=== PATIENT | male | born 1970 | race Caucasian/White ===

== ENCOUNTER 2016-06-16 18:40 | Emergency (ER) | payer BC, OTHER ==
[~2016-06-16] VITALS: Ht 165.1 cm; Wt 80.0 kg
[2016-06-16 18:46] VITALS: Ht 165.1 cm; Wt 80.0 kg
--- NOTE | 2016-06-16 20:13 | ERD ---
ER Documentation Chief Complaint Date/Time DATE: 06/16/16 TIME: 20:11 Chief Complaint left finger wound scraped from air conditioner HPI 46-year-old male presents to emergency department for complaints of left fourth finger abrasion, superficial laceration after accidentally injuring it against a a metal object at work today. Patient described pain as throbbing pain, 6/10 scale, 6/10 scale, is worse upon touching the area. Patient did not take any medication to put symptoms. Patient does not have any numbness or tingling. Patient denies any deformity. Patient denies any foreign body. ROS All systems reviewed and are negative except as per history of present illness. Medications Home Meds Active Scripts Cephalexin* (Keflex*) 500 Mg Capsule, 500 MG PO QID for 5 Days, CAP Prov:EDUARDO BUNN [employer] SEC[employer]ITY CONSULTANT 06/16/16 Ibuprofen* (Motrin*) 600 Mg Tab, 600 MG PO Q6H Y for PAIN AND OR ELEVATED TEMP, #30 TAB Prov:EDUARDO BUNN IT SEC[employer] CONSULTANT 06/16/16 Reported Medications [none] Unknown Strength No Conflict Check 06/16/16 Allergies Allergies: Coded Allergies: No Known Allergy (Unverified , 06/16/16) PMhx/Soc Unknown last tetanus immunization Medical and Surgical Hx: pt denies Medical Hx, pt denies Surgical Hx History of Surgery: No Anesthesia Reaction: No Hx Neurological Disorder: No Hx Respiratory Disorders: No Hx Cardiac Disorders: No Hx Psychiatric Problems: No Hx Miscellaneous Medical Probl: No Hx Alcohol Use: Yes (SOCIALLY) Hx Substance Use: No Hx Tobacco Use: No Smoking Status: Never smoker FmHx Family History: No coronary disease, No diabetes, No other Physical Exam Vitals Vital Signs Date Time Temp Pulse Resp B/P Pulse Ox O2 Delivery O2 Flow Rate FiO2 06/16/16 18:46 98.0 89 20 172/95 97 Physical Exam GENERAL: The patient is well developed and appropriate for usual state of health, in no apparent distress. CHEST: Clear to auscultation bilaterally. There are no rales, wheezes or rhonchi. HEART: Regular rate and rhythm. No murmurs, clicks, rubs or gallops. No S3 or S4. ABDOMEN: Soft, nontender and nondistended. Good bowel sounds. No rebound or guarding. No gross peritonitis. No gross organomegaly or masses. No Harp sign or McBurney point tenderness. BACK: No midline or flank tenderness. EXTREMITIES: Equal pulses bilaterally. There is no peripheral clubbing, cyanosis or edema. No focal swelling or erythema. Full range of motion. Grossly neurovascularly intact. NEURO: Alert and oriented. Cranial nerves 2-12 intact. Motor strength in all 4 extremities with 5/5 strength. Sensation grossly intact. Normal speech and gait. SKIN: 0.5 cm wound noted in the dorsal aspect of the left fourth finger, mild tenderness on palpation, bleeding is controlled, able to do full range of motion without any or suction, no tendon involvement noted. There is no apparent ecchymosis or petechia. The skin is warm and dry. HEMATOLOGIC AND LYMPHATIC: There is no evidence of excessive bruising or lymphedema. No gross cervical, axillary, or inguinal lymphadenopathy. Results 24 hrs Current Medications Medications (Trade) Dose Ordered Sig/Kain Route PRN Reason Start Time Stop Time Status Last Admin Dose Admin Diphtheria/ Tetanus/Acell Pertussis (Adacel) 0.5 ml ONCE ONCE IM* 06/16/16 20:30 06/16/16 20:31 DC 06/16/16 20:18 Tdap was given to prevent tetanus. Patient tolerated medication well. PROCEDURE: XR Hand. CLINICAL INDICATION: Trauma. Right fourth finger pain. TECHNIQUE: Three views. Frontal, lateral, and oblique images of the right hand were obtained. COMPARISON: No prior studies are available for comparison. FINDINGS: There is no fracture or dislocation. The soft tissues are normal. Articular surfaces are intact. There is no lytic or blastic lesion. There is no radiopaque foreign body. IMPRESSION: 1. Unremarkable images of the right hand. 2. The right fourth finger appears normal. RPTAT: QQ .Amado Duarte MD, MD Date Time Electronically viewed and signed by .Amado Duarte MD, MD on 06/16/2016 20:37 .R/ CC: EDUARDO BUNN [employer] CONSULTANT Procedures/MDM Procedure Note: After obtaining informed consent, the wound was irrigated with 250 ml of normal saline and cleaned with diluted betadine. Using aseptic technique, the wound was approximated using a dermabond. After the procedure, the wound was well approximated. Patient tolerated procedure well. A finger metal splint was applied on the finger afterwards. Medical Decision Making: Patient's pain is most likely consistent with a laceration wound on affected area. There is no suspicion for neurovascular compromise. Patient has intact sensation and circulation of the affected extremity. There is low suspicion for septic arthritis. Patient does not have any fever. Radiology exams of the affected area does not show any fracture or dislocation. Tetanus vaccine was updated. Disposition: Home. Patient is given prescription for ibuprofen for pain Keflex to prevent infection. Patient was advised to keep Area dry, avoid chemicals or wetting the area for at least 7-10 days.. Patient was advised that if symptoms are worse, numbness, tingling, high fever, unable to move joint, worsening symptoms, to return to emergency department immediately. Otherwise, patient is advised to follow up with the primary care doctor in 2 days for wound check. Departure Diagnosis: Primary Impression: Finger laceration Encounter type: initial encounter Qualified Code: S61.219A - Finger laceration, initial encounter Condition: Stable Additional Instructions: Patient is given prescription for ibuprofen for pain Keflex to prevent infection. Patient was advised to keep Area dry, avoid chemicals or wetting the area for at least 7-10 days.. Patient was advised that if symptoms are worse, numbness, tingling, high fever, unable to move joint, worsening symptoms, to return to emergency department immediately. Otherwise, patient is advised to follow up with the primary care doctor in 2 days for wound check. EDUARDO BUNN NP Jun 16, 2016 20:13
[2016-06-16] MEDS ORDERED: DIPHTH/TET/ACEL PERTUSS (ADULT) 0.5 ML VIAL IM* ONE (20:30)
--- NOTE | 2016-06-16 20:37 | RADRPT ---
PROCEDURE: XR Hand. CLINICAL INDICATION: Trauma. Right fourth finger pain. TECHNIQUE: Three views. Frontal, lateral, and oblique images of the right hand were obtained. COMPARISON: No prior studies are available for comparison. FINDINGS: There is no fracture or dislocation. The soft tissues are normal. Articular surfaces are intact. There is no lytic or blastic lesion. There is no radiopaque foreign body. IMPRESSION: 1. Unremarkable images of the right hand. 2. The right fourth finger appears normal. RPTAT: QQ .Amado Duarte MD, Date Time Electronically viewed and signed by .Amado Duarte MD, on 06/16/2016 20:37 .R/
[2016-06-16] MEDS ORDERED: CEPH-443 PO (20:57)
[2016-06-16] MEDS ORDERED: IBUP-1542 PO (20:57)
== END 2016-06-16 21:10 | disposition home or self-care (01) ==
LOC: FTE 18:40
DX: S61.215A Laceration without foreign body of left ring finger without damage to nail, initial encounter (principal); W22.8XXA Striking against or struck by other objects, initial encounter; Y92.89 Other specified places as the place of occurrence of the external cause; Z23 Encounter for immunization
CPT/HCPCS: 12001; 73130; 90715; Z7610; 90471